=== PATIENT | female | born 2000 | race Hispanic/Latino ===

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

== ENCOUNTER 2020-07-15 20:29 | Emergency (ER) | payer OTHER | END 2020-07-15 22:31 | disposition home or self-care (01) | LOC: EDH 20:29 | DX: S70.02XA Contusion of left hip, initial encounter (principal); S80.11XA Contusion of right lower leg, initial encounter; S80.12XA Contusion of left lower leg, initial encounter; S40.022A Contusion of left upper arm, initial encounter; M25.551 Pain in right hip; V49.49XA Driver injured in collision with other motor vehicles in traffic accident, initial encounter; Y93.89 Activity, other specified; Y92.89 Other specified places as the place of occurrence of the external cause; Y99.8 Other external cause status | CPT/HCPCS: 73060; 73090; 73502; 73552; 73590; 81025 ==

== ENCOUNTER 2021-01-31 15:55 | Emergency (ER) | payer OTHER ==
[~2021-01-31] VITALS: Ht 172.7 cm; Wt 126.1 kg
[2021-01-31 19:17] LABS: BASOPHILS % (AUTO) 0.2 % (0.0-5.0); EOSINOPHILS % (AUTO) 0.7 % (0.0-8.0); HEMATOCRIT 35.1 % (36-48); LYMPHOCYTES % (AUTO) 5.6 % (21.0-51.0); MEAN CORPUSCULAR HEMOGLOBIN 20.9 pg (27.0-33.0); MEAN CORPUSCULAR HGB CONC 28.8 g/dL (32.0-36.0); MEAN CORPUSCULAR VOLUME 72.5 fL (79-99); MONOCYTES % (AUTO) 3.2 % (3.0-13.0); NEUTROPHILS % (AUTO) 89.9 % (40.0-77.0); PLATELET COUNT (AUTO) 358 K/uL (130-400); RED BLOOD CELL COUNT(AUTO) 4.84 MIL/uL (4.00-5.50); RED CELL DISTRIBUTION WIDTH 18.6 % (11.0-15.5); WHITE BLOOD COUNT (AUTO) 10.5 K/uL (4.8-10.8)
[2021-01-31] MEDS ORDERED: LEVOFLOXACIN 500 MG/D5W 100 ML 100 ML IV STA (19:19)
[2021-01-31 19:20] LABS: APPEARANCE,URINE Cloudy (CLEAR); BILIRUBIN,URINE Negative (NEGATIVE); COLOR,URINE Yellow (YELLOW); GLUCOSE, URINE (UA) Negative (NEGATIVE); KETONES,URINE Negative (NEGATIVE); LEUKOCYTE ESTERASE ,URINE Moderate (NEGATIVE); NITRATE,URINE Negative (NEGATIVE); OCCULT BLOOD,URINE Negative (NEGATIVE); PROTEIN,URINE Negative (NEGATIVE)
[2021-01-31 19:21] LABS: HCG,QUAL RESULT NEGATIVE (NEGATIVE)
[2021-01-31 19:24] LABS: CREATININE 0.8 mg/dL (0.5-1.5); POTASSIUM 3.8 mmol/L (3.5-5.1)
[2021-01-31 19:28] LABS: ALBUMIN 3.6 g/dL (3.5-5.0); BILIRUBIN,TOTAL 0.8 mg/dL (0.2-1.0); TOTAL PROTEIN, SERUM 8.1 g/dL (6.0-8.3)
[2021-01-31] MEDS ORDERED: 0.9%NACL 1000ML 1,000 ML IV ONE ×2 (19:30→19:44)
[2021-01-31] MEDS ORDERED: ONDANSETRON 4MG INJ IVP ONE (19:30)
[2021-01-31] MEDS ORDERED: FAMOTIDINE 20MG TAB PO ONE (19:30)
[2021-01-31] MEDS ORDERED: KETOROLAC 30MG VIAL (30MG/ML) IVP ONE (19:30)
[2021-01-31] MEDS ORDERED: FAMOTIDINE 20MG TAB ONE (19:31)
[2021-01-31] MEDS ORDERED: ONDANSETRON 4MG INJ ONE (19:31)
[2021-01-31] MEDS ORDERED: LEVOFLOXACIN 500 MG/D5W 100 ML 100 ML ONE (19:31)
[2021-01-31] MEDS ORDERED: KETOROLAC 30MG VIAL (30MG/ML) ONE (19:32)
[2021-01-31 19:53] LABS: BACTERIA,URINE Few /HPF (None Seen); MUCUS,URINE Few LPF (None Seen); SQUAMOUS EPITHELIAL CELL,UR Few /HPF (0-2)
[2021-01-31] MEDS ORDERED: ACETAMINOPHEN 500 MG TABLET PO STA (21:26)
[2021-01-31] MEDS ORDERED: CIPR-278 PO (22:19)
[2021-01-31] MEDS ORDERED: ONDA4TAB4 PO (22:19)
[2021-01-31] MEDS ORDERED: FAMO-136 PO (22:19)
[2021-01-31 22:25] VITALS: BP 107/51
== END 2021-01-31 23:18 | disposition home or self-care (01) ==
LOC: EDH 15:55
DX: A09 Infectious gastroenteritis and colitis, unspecified (principal); Z88.5 Allergy status to narcotic agent; Z79.1 Long term (current) use of non-steroidal anti-inflammatories (NSAID); Z79.899 Other long term (current) drug therapy
CPT/HCPCS: 36415; 80053; 81001; 81025; 85025; 87088; 96365; 96375; 99285; J1885; J1956; J2405; J7030